=== PATIENT | female | born 1985 | race Hispanic/Latino ===

== ENCOUNTER 2021-04-10 18:39 | Emergency (ER) | payer MEDICAID ==
[~2021-04-10] VITALS: Ht 142.2 cm; Wt 79.1 kg
[2021-04-10] MEDS ORDERED: PRENATA3 PO (19:06)
[2021-04-10 19:56] LABS: HEMATOCRIT 32.8 % (37.0-47.0); IMMATURE GRANULOCYTES 0.3 % (0.0-5.0); MEAN CELL VOLUME 91.4 fL CALC (80.0-100.0); MEAN CORPUSCULAR HGB 30.6 pG CALC (26.0-32.0); MEAN CORPUSCULAR HGB CONC 33.5 g/dL CAL (32.0-36.0); NEUT# 5.28 thou/uL (2.00-7.15); RED BLOOD COUNT 3.59 mill/uL (4.20-5.60); RED CELL DISTRI WIDTH 12.9 % (11.5-15.5)
[2021-04-10 20:18] LABS: ALBUMIN 3.3 g/dL (3.2-5.0); ALKALINE PHOSPHATASE 112 u/l (38-126); ANION GAP 12 (6-22 (CALC)); BILIRUBIN, TOTAL 0.4 mg/dL (0.0-1.4); BUN 6 mg/dL (7-17); BUN/CREATININE RATIO 11 (12-20 (CALC)); CARBON DIOXIDE 23 mmol/l (22-30); CHLORIDE 104 mmol/l (95-108); CREATININE 0.5 mg/dL (0.5-1.0); GFR > 60 ML/MIN (>=60 (CALC)); GFR FOR AFR.AMER. > 60 ML/MIN (>=60 (CALC)); POTASSIUM 3.5 mmol/l (3.5-5.1); SGOT/AST 44 u/l (14-36); SODIUM 136 mmol/l (137-146); TOTAL PROTEIN 6.6 g/dL (6.3-8.2)
[2021-04-10 21:05] VITALS: BP 129/79
== END 2021-04-10 22:40 | disposition short-term general hospital (02) ==
LOC: ED 18:39
PROVIDERS: Family Medicine
DX: O60.03 Preterm labor without delivery, third trimester (principal); Z3A.28 28 weeks gestation of pregnancy